=== PATIENT | female | born 1975 | race Caucasian/White ===

== ENCOUNTER 2017-01-13 08:21 | Emergency (ER) | payer OTHER ==
[~2017-01-13] VITALS: Ht 157.5 cm; Wt 52.6 kg
[2017-01-13 08:24] VITALS: BP 107/75
--- NOTE | 2017-01-13 09:05 | ED GENERAL ADULT ---
History of Present Illness General Chief Complaint: Low Back Pain/Injury Stated Complaint: PER PT THREW BACK OUT Source: patient Exam Limitations: no limitations Vital Signs & Intake/Output Vital Signs & Intake/Output Vital Signs Date Time Temp Pulse Resp B/P Pulse O2 O2 Flow FiO2 Ox Delivery Rate 01/13 0824 97.6 96 18 107/75 99 Room Air Allergies Coded Allergies: No Known Allergies (01/13/17) Reconcile Medications Cyclobenzaprine HCl 10 MG TABLET 1 TAB PO BID PAIN Meloxicam (Mobic) 15 MG TABLET 1 TAB PO DAILY PRN PAIN Oxycodone HCl/Acetaminophen (Percocet 5-325 MG Tablet) 5 MG-325 MG TABLET 1 TAB PO BID PAIN Triage Note: 41 LEG; ONSET THIS AM WHILE MOVING A COUCH - "I FELT A POP". IN W/C FOR COMFORT. Triage Nurses Notes Reviewed? yes Onset: Abrupt Duration: day(s): Timing: recent history : No Patient currently breastfeeds: No HPI: 01/13/17 9 AM This is a roldan 41-year-old female presents to the emergency department with a sudden onset of severe left lumbar pain. According to the patient she was pushing a couch and she developed severe left lower lumbar pain. The onset of the symptoms was abrupt, the duration was just this morning, the severity is significant; as her symptoms required her to come to the emergency department for care. She did say that she felt an audible pop when she was doing this. She has no bowel or bladder dysfunction, no lower extremity weakness. She is ambulating with pain and has significant tenderness and decreased range of motion to the left lower lumbar area. The central spine is nontender. She does have a past medical history of fibromyalgia. Her only medication currently is Wellbutrin. She is following up with a pain management physician tomorrow for injections in her neck. On physical exam she does have tenderness to the left lumbar area. Abdomen is soft and nontender. No lower extremity weakness. She has good sensation on both inner thighs. Past History Travel History Traveled to [place] past 21 day No Medical History Any Pertinent Medical History? see below for history Neurological: NONE EENT: NONE Cardiovascular: NONE Respiratory: NONE Gastrointestinal: NONE Hepatic: NONE Renal: NONE Musculoskeletal: FIBROMYALGIA Psychiatric: NONE Endocrine: NONE Blood Disorders: NONE Cancer(s): NONE SECURITY POLICE/Reproductive: NONE Surgical History Surgical History: non-contributory Psychosocial History What is your primary language Kinyarwanda Tobacco Use: Quit <30 days ago Family History Hx Contributory? No Review of Systems Review of Systems Constitutional: Denies: fever. EENTM: Reports: no symptoms. Respiratory: Reports: no symptoms. Cardiovascular: Reports: no symptoms. GI: Denies: abdominal pain. Genitourinary: Reports: no symptoms. Musculoskeletal: Reports: see HPI, back pain. Skin: Denies: rash. Neurological/Psychological: Denies: weakness. Hematologic/Endocrine: Reports: no symptoms. Physical Exam Physical Exam General Appearance: alert, awake, anxious, moderate distress Head: atraumatic, normal appearance Eyes: Bilateral: normal appearance, PERRL, EOMI. Ears, Nose, Throat: normal pharynx, normal ENT inspection Neck: normal inspection, supple, limited range of motion Respiratory: no respiratory distress Cardiovascular: regular rate/rhythm Peripheral Pulses: 4+ radial (R), 4+ radial (L) Back: muscle spasm, no vertebral tenderness, LEFT LUMBAR TENDERNESS Extremities: no edema Neurologic/Psych: awake, alert, oriented x 3 Skin: intact, normal color, warm/dry Core Measures ACS in differential dx? No CVA/TIA Diagnosis: No Severe Sepsis Present: No Septic Shock Present: No Progress Differential Diagnoses I considered the following diagnoses in my evaluation of the patient: [Cauda equina syndrome, epidural hematoma, disc herniation, lumbar strain, exacerbation of fibromyalgia Plan of Care: Current Medications Sig/Reinaldo Start time Last Medication Dose Stop Time Status Admin Cyclobenzaprine HCl 10 MG ONCE ONE 01/13 930 UNVr (Flexeril 10MG Tab) 01/13 931 Ketorolac 60 MG ONCE ONE 01/13 930 UNVr Tromethamine 01/13 931 (Toradol) Oxycodone/ 1 TAB ONCE ONE 01/13 930 UNVr Acetaminophen 01/13 931 (Percocet) Pain medications as directed. Follow-up with her pain management doctor tomorrow as scheduled (SREEKANTH TAYLOR DO) Initial ED EKG: none Departure Departure Disposition: HOME OR SELF CARE Condition: Stable Clinical Impression Primary Impression: Back pain Referrals: CLARK LENZ D.O. (PCP/Family) Departure Forms: Customer Survey General Discharge Information Prescriptions: Current Visit Scripts Oxycodone HCl/Acetaminophen (Percocet 5-325 MG Tablet) 1 TAB PO BID #10 TAB Cyclobenzaprine HCl 1 TAB PO BID #20 TAB Meloxicam (Mobic) 1 TAB PO DAILY PRN PAIN #10 TAB Comments 01/13/17 9:15 AM The patient was treated with IM Toradol, by mouth Flexeril, and by mouth Percocet. She will follow-up with her pain management physician this week Critical Care Note Critical Care Note Critical Care Time: non-applicable Critical Care Time: non-applicable
[2017-01-13] MEDS ORDERED: PERCOCET 5-3251 EACH PO (09:19)
[2017-01-13] MEDS ORDERED: MOBIC15 M1 PO (09:19)
[2017-01-13] MEDS ORDERED: CYCLOBENZAPRINE10 M1 PO (09:19)
== END 2017-01-13 09:40 ==
LOC: ERH 08:21
DX: M54.5 Low back pain (principal)
CPT/HCPCS: 96372; J1885